=== PATIENT | male | born 1970 | race Caucasian/White ===

== ENCOUNTER 2018-11-22 16:58 | Emergency (ER) | payer OTHER ==
[~2018-11-22] VITALS: Ht 182.9 cm; Wt 127.0 kg
[2018-11-22] MEDS ORDERED: ASPIRIN 325MG EC TABLET PO ONE (19:00)
[2018-11-22 20:46] LABS: BASOPHILS % 0.5 % (0.0-2.0); EOSINOPHILS % 0.7 % (0.0-5.0); HEMATOCRIT. 48.8 % (42.0-52.0); HEMOGLOBIN. 16.8 g/dL (14.0-18.0); LYMPHOCYTES % 17.4 % (20.0-50.0); MEAN CORPUSCULAR HEMOGLOBIN 30.3 pg (28.0-32.0); MEAN PLATELET VOLUME 7.7 fl (7.4-10.4); MONOCYTES % 9.4 % (2.0-8.0); PLATELET 298 x1000/uL (130-400); RED BLOOD CELL COUNT 5.54 mill/uL (4.7-6.1)
[2018-11-22] MEDS ORDERED: MAGNESIUM/ALUMINUM HYDROXIDE/SIMETHICONE 30ML UDC PO STA (20:47)
[2018-11-22] MEDS ORDERED: VISCOUS LIDOCAINE 2% 15 ML UDC PO STA (20:47)
[2018-11-22 20:50] LABS: CHLORIDE 103 mEq/L (98-107)
[2018-11-22] MEDS ORDERED: FAMOTIDINE 20MG TABLET PO ONE (21:00)
[2018-11-22 22:09] VITALS: BP 110/69
== END 2018-11-22 23:58 | disposition home or self-care (01) ==
LOC: ER 16:58
DX: R07.89 Other chest pain (principal); R10.10 Upper abdominal pain, unspecified; K21.9 Gastro-esophageal reflux disease without esophagitis; I10 Essential (primary) hypertension; F15.10 Other stimulant abuse, uncomplicated
CPT/HCPCS: 36415; 71045; 84484; 85379; 93005; 99284